=== PATIENT | male | born 1960 ===

== ENCOUNTER 2018-07-15 08:59 | Day surgery (SDC) | payer BC ==
[~2018-07-15] VITALS: Ht 177.8 cm; Wt 107.2 kg
[~2018-07-15 08:59] MED LIST: CEPH500 PO; HYDACE5 PO; RXHYDACE PO
== END 2018-07-15 11:10 | disposition home or self-care (01) ==
LOC: ORSCSDS 08:59
PROVIDERS: Surgery
PROC: 0DBP8ZX Excision of Rectum, Via Natural or Artificial Opening Endoscopic, Diagnostic (ICD-10-PCS; principal; 2018-07-15 10:15)
DX: Z12.11 Encounter for screening for malignant neoplasm of colon (principal); D12.8 Benign neoplasm of rectum; K57.30 Diverticulosis of large intestine without perforation or abscess without bleeding; Z80.0 Family history of malignant neoplasm of digestive organs; J45.909 Unspecified asthma, uncomplicated; R03.0 Elevated blood-pressure reading, without diagnosis of hypertension
CPT/HCPCS: 88305; J7120

== ENCOUNTER 2021-06-22 23:59 | Emergency (ER) | payer BC ==
[~2021-06-22] VITALS: Ht 177.8 cm; Wt 108.9 kg
== END 2021-06-23 00:54 | disposition home or self-care (01) ==
LOC: ER 23:59
DX: U07.1 COVID-19 (principal)
CPT/HCPCS: 99283